=== PATIENT | female | born 2000 | race Caucasian/White ===

== ENCOUNTER 2022-02-02 19:04 | Emergency (ER) | payer OTHER ==
[~2022-02-02] VITALS: Ht 157.5 cm; Wt 84.5 kg
[2022-02-02] MEDS ORDERED: CHLO200T10 PO (19:30)
[2022-02-02] MEDS ORDERED: LITH300T PO (19:30)
[2022-02-02] MEDS ORDERED: RISP2TAB45 PO (19:30)
[2022-02-02] MEDS ORDERED: LITH600C PO (19:30)
[2022-02-02] MEDS ORDERED: BENZ1TAB96 PO (19:30)
[2022-02-02] MEDS ORDERED: DIVA-112 PO (19:30)
[2022-02-02] MEDS ORDERED: BENZ2TAB76 PO (19:30)
[2022-02-02] MEDS ORDERED: SERT-439 PO (19:30)
[2022-02-02] MEDS ORDERED: CHLO50TA24 PO (19:46)
[2022-02-02] MEDS ORDERED: KETOROLAC TROMETHAMINE 30 MG/ML VIAL IVP ONE (20:45)
[2022-02-02] MEDS ORDERED: ONDANSETRON HCL 4 MG/2 ML VIAL IVP ONE (20:45)
[2022-02-02] MEDS ORDERED: SODIUM CHLORIDE 0.9% 1,000 ML IV ONE (20:45)
[2022-02-02 20:56] LABS: BASOPHILS % (AUTO) 0.3 % (0.0-2.0); EOSINOPHILS % (AUTO) 0 % (1.0-6.0); HEMATOCRIT 37.7 % (36-46); HEMOGLOBIN 12.7 g/dL (12.0-16.0); LYMPHOCYTES # (AUTO) 2.5 K/uL (1.0-4.8); LYMPHOCYTES % (AUTO) 33.3 % (22.0-44.0); MEAN CORPUSCULAR HEMOGLOBIN 28.8 pg (26.0-34.0); MEAN CORPUSCULAR HGB CONC 33.7 G/dL (31.0-37.0); MEAN CORPUSCULAR VOLUME 85 fL (80-100); MONOCYTES # (AUTO) 0.7 K/uL (0.1-1.0); MONOCYTES % (AUTO) 9.4 % (2.0-9.0); NEUTROPHILS # (AUTO) 4.2 K/uL (1.8-7.7); PLATELET COUNT (AUTO) 349 K/uL (150-450); RED BLOOD CELL COUNT(AUTO) 4.43 MIL/uL (4.00-5.20); RED CELL DISTRIBUTION WIDTH 13.5 % (11.5-14.5)
[2022-02-02 21:05] LABS: ANION GAP 9 mmol/L (8-16); CALCIUM, TOTAL 9.1 mg/dL (8.8-10.5); CARBON DIOXIDE 31 mmol/L (22-29); CHLORIDE 102 mmol/L (98-107); CREATININE 0.64 mg/dL (0.60-1.30); GLOMERULAR FILTR. RATE CALC > 60 mL/min (>60); GLUCOSE,RANDOM 117 mg/dL (70-110); POTASSIUM 3.6 mmol/L (3.5-5.1); SODIUM SERUM 142 mmol/L (136-145); UREA NITROGEN, BLOOD 13 mg/dL (7-18)
[2022-02-02 21:10] LABS: ALANINE AMINOTRANSFERASE 32 U/L (12-78); ALBUMIN 3.5 g/dL (3.4-5.0); ALKALINE PHOSPHATASE 71 U/L (46-116); ASPARTATE AMINOTRANSFERASE 15 U/L (15-37); BILIRUBIN,TOTAL 0.1 mg/dL (0.1-1.0); TOTAL PROTEIN, SERUM 7.6 g/dL (6.4-8.2); VALPROIC ACID 13 mcg/mL (50-100)
[2022-02-02 21:34] LABS: LITHIUM < 0.20 mmol/L (0.60-1.20)
[2022-02-02 23:00] VITALS: BP 139/75
[2022-02-04] MEDS ORDERED: ACET-66 PO (22:28)
== END 2022-02-03 01:40 | disposition home or self-care (01) ==
LOC: EMS 19:15
DX: R51.9 Headache, unspecified (principal); F31.9 Bipolar disorder, unspecified; G47.00 Insomnia, unspecified; R42 Dizziness and giddiness
CPT/HCPCS: 36415; 80053; 80164; 80178; 85025; 96361; 96374; 96375; 99284; G0480; J1885; J2405; J7030

== ENCOUNTER 2022-02-03 14:03 | Emergency (ER) | payer OTHER ==
[~2022-02-03] VITALS: Ht 157.5 cm; Wt 84.5 kg
[~2022-02-03 14:03] MED LIST: BENZ2TAB76 PO; CHLO200T10 PO; CHLO50TA24 PO; DIVA-112 PO; LITH300T PO; LITH600C PO; RISP2TAB45 PO; SERT-439 PO
[2022-02-03 14:36] VITALS: BP 122/69
[2022-02-03] MEDS ORDERED: SODIUM CHLORIDE 0.9% 1,000 ML IV ONE (15:00)
[2022-02-03] MEDS ORDERED: KETOROLAC TROMETHAMINE 30 MG/ML VIAL IVP ONE (15:00)
[2022-02-03] MEDS ORDERED: ONDANSETRON HCL 4 MG/2 ML VIAL IVP ONE (15:00)
[2022-02-04] MEDS ORDERED: ACET-66 PO (22:28)
== END 2022-02-03 18:10 | disposition home or self-care (01) ==
LOC: EMS 14:06
DX: R51.9 Headache, unspecified (principal); F31.9 Bipolar disorder, unspecified; F41.9 Anxiety disorder, unspecified; F20.9 Schizophrenia, unspecified
CPT/HCPCS: 70450; 96361; 96374; 96375; 99284; J1885; J2405; J7030

== ENCOUNTER 2022-02-04 19:01 | Emergency (ER) | payer OTHER ==
[~2022-02-04] VITALS: Ht 165.1 cm; Wt 86.4 kg
[2022-02-04] MEDS ORDERED: ACET-66 PO (22:28)
[2022-02-04 22:39] VITALS: BP 128/90
[2022-02-04] MEDS ORDERED: ACETAMINOPHEN 500 MG TABLET PO ONE (23:00)
== END 2022-02-04 23:06 | disposition home or self-care (01) ==
LOC: EMS 19:10
DX: R51.9 Headache, unspecified (principal); F41.9 Anxiety disorder, unspecified; R44.0 Auditory hallucinations; R44.1 Visual hallucinations; F32.9 Major depressive disorder, single episode, unspecified
CPT/HCPCS: 99283